=== PATIENT | male | born 1960 | race African-American/Black ===

== ENCOUNTER 2021-04-21 08:26 | Inpatient (IN) | payer SELFPAY ==
[~2021-04-21] VITALS: Ht 188 cm; Wt 104.8 kg
[2021-04-21 09:10] LABS: BASOPHILS % 0.9 % (0.0-2.0); HEMATOCRIT. 39.6 % (42.0-52.0); HEMOGLOBIN. 13.5 g/dL (14.0-18.0); LYMPHOCYTES % 25.7 % (20.0-50.0); MEAN CORPUSCULAR HEMOGLOBIN 30.6 pg (28.0-32.0); MEAN CORPUSCULAR VOLUME 90.2 fL (80.0-94.0); MEAN PLATELET VOLUME 10.6 fl (7.4-10.4); MONOCYTES % 11.4 % (2.0-8.0); PLATELET 163 x1000/uL (130-400); RED CELL DISTRIBUTION WIDTH 13.4 % (11.6-14.6)
[2021-04-21 09:16] LABS: CHLORIDE 106 mEq/L (98-107)
[2021-04-21 09:20] LABS: ETHANOL BLOOD < 10 mg/dL
[2021-04-21 12:29] LABS: CLARITY URINE CLEAR (CLEAR); COLOR URINE YELLOW (YELLOW); KETONES URINE 1+ (NEGATIVE); LEUKOCYTE ESTERASE URINE NEGATIVE (NEGATIVE); NITRITE URINE NEGATIVE (NEGATIVE); OCCULT BLOOD URINE 1+ (NEGATIVE); PROTEIN URINE TRACE (NEGATIVE); SPECIFIC GRAVITY URINE 1.031 (1.005-1.030)
[2021-04-21 12:45] LABS: *AMPHETAMINES SCREEN URINE NEGATIVE (NEGATIVE); *BARBITURATES SCREEN URINE NEGATIVE (NEGATIVE); *BENZODIAZEPINES SCREEN URINE NEGATIVE (NEGATIVE); *COCAINE SCREEN URINE NEGATIVE (NEGATIVE)
[2021-04-21 12:46] LABS: CANNABINOID URINE SCREEN NEGATIVE (NEGATIVE); METHADONE URINE SCREEN NEGATIVE (NEGATIVE); OPIATES URINE SCREEN NEGATIVE (NEGATIVE); PHENCYCLIDINE URINE SCREEN NEGATIVE (NEGATIVE)
[2021-04-21] MEDS ORDERED: NA PHOS,M-B/NA PHOS,DI-BA ENEMA 118ML PR PRN (15:30)
[2021-04-21] MEDS ORDERED: ZOLPIDEM TARTRATE 5MG TABLET PO PRN (15:30)
[2021-04-21] MEDS ORDERED: IPRATROPIUM/ALBUTEROL 0.5-3(2.5)MG/3ML NEB NEB PRN (15:30)
[2021-04-21] MEDS ORDERED: NITROGLYCERIN 0.4MG TABLET SL SL PRN (15:30)
[2021-04-21] MEDS ORDERED: KETOROLAC 15MG/ML VIAL IV PRN (15:30)
[2021-04-21] MEDS ORDERED: GUAIFENESIN 200MG/10ML SUGAR FREE UDC PO PRN (15:30)
[2021-04-21] MEDS ORDERED: DOCUSATE SODIUM 100MG CAPSULE PO PRN (15:30)
[2021-04-21] MEDS ORDERED: MAGNESIUM/ALUMINUM HYDROXIDE/SIMETHICONE 30ML UDC PO PRN (15:30)
[2021-04-21] MEDS ORDERED: ONDANSETRON HCL 4MG/2ML INJ IV PRN (15:30)
[2021-04-21] MEDS ORDERED: CLONIDINE 0.1MG TABLET PO PRN (15:30)
[2021-04-21] MEDS ORDERED: ACETAMINOPHEN 325MG TABLET PO PRN ×2 (15:30)
[2021-04-21 16:36] LABS: T4 FREE 1.16 ng/dL (0.76-1.46)
[2021-04-21 17:11] LABS: FOLIC ACID (FOLATE) SERUM 10.2 ng/mL (>5.38)
[2021-04-21] MEDS: FAMOTIDINE 20MG TABLET PO SCH (21:00)
[2021-04-21] MEDS: ASCORBIC ACID 500 MG TABLET PO SCH (21:00)
[2021-04-21] MEDS: ENOXAPARIN 40MG/0.4ML SYR SUBCUT SCH (21:36)
[2021-04-21 23:31] LABS: CREATINE KINASE 371 IU/L (39-308)
[2021-04-21 23:32] LABS: CREATINE KINASE MB FRACTION 2.7 ng/mL (0.5-3.6)
[2021-04-22 05:54] LABS: BASOPHILS % 0.8 % (0.0-2.0); EOSINOPHILS % 3.5 % (0.0-5.0); HEMATOCRIT. 45.3 % (42.0-52.0); HEMOGLOBIN. 15.2 g/dL (14.0-18.0); MEAN CORPUSCULAR HEMOGLOBIN 30.6 pg (28.0-32.0); MEAN CORPUSCULAR VOLUME 91.3 fL (80.0-94.0); MEAN PLATELET VOLUME 10.9 fl (7.4-10.4); MONOCYTES % 12.5 % (2.0-8.0); NEUTROPHILS % 51.2 % (40.0-76.0); PLATELET 165 x1000/uL (130-400); RED BLOOD CELL COUNT 4.96 mill/uL (4.7-6.1); RED CELL DISTRIBUTION WIDTH 13.5 % (11.6-14.6)
[2021-04-22 05:56] LABS: CHLORIDE 108 mEq/L (98-107)
[2021-04-22 06:05] LABS: PHOSPHORUS 3.1 mg/dL (2.5-4.9)
[2021-04-22 06:07] LABS: CREATINE KINASE 324 IU/L (39-308)
[2021-04-22] MEDS: ASPIRIN 325MG EC TABLET PO SCH (09:00)
[2021-04-22] MEDS: CHOLECALCIFEROL (D3) 1000 UNIT TABLET PO SCH (09:00)
[2021-04-22] MEDS: FAMOTIDINE 20MG TABLET PO SCH ×2 (09:00→20:25)
[2021-04-22] MEDS: ZINC SULFATE 220 MG ( 50 ) CAPSULE PO SCH (09:00)
[2021-04-22] MEDS: ASCORBIC ACID 500 MG TABLET PO SCH ×2 (09:00→20:25)
[2021-04-22 10:28] VITALS: BP 130/67
[2021-04-22] MEDS: ENOXAPARIN 40MG/0.4ML SYR SUBCUT SCH (16:00)
[2021-04-23] MEDS: ZINC SULFATE 220 MG ( 50 ) CAPSULE PO SCH (09:00)
[2021-04-23] MEDS: FAMOTIDINE 20MG TABLET PO SCH ×2 (09:00→21:00)
[2021-04-23] MEDS: ASPIRIN 325MG EC TABLET PO SCH (09:00)
[2021-04-23] MEDS: CHOLECALCIFEROL (D3) 1000 UNIT TABLET PO SCH (09:00)
[2021-04-23] MEDS: ASCORBIC ACID 500 MG TABLET PO SCH ×2 (09:00→21:00)
[2021-04-23] MEDS: ENOXAPARIN 40MG/0.4ML SYR SUBCUT SCH (16:00)
[2021-04-24] MEDS: ZINC SULFATE 220 MG ( 50 ) CAPSULE PO SCH (09:00)
[2021-04-24] MEDS: FAMOTIDINE 20MG TABLET PO SCH ×2 (09:00→21:00)
[2021-04-24] MEDS: CHOLECALCIFEROL (D3) 1000 UNIT TABLET PO SCH (09:00)
[2021-04-24] MEDS: ASCORBIC ACID 500 MG TABLET PO SCH ×2 (09:00→21:00)
[2021-04-24] MEDS: ASPIRIN 325MG EC TABLET PO SCH (09:00)
[2021-04-24 11:01] VITALS: BP 0/0
[2021-04-24] MEDS: ENOXAPARIN 40MG/0.4ML SYR SUBCUT SCH (16:00)
[2021-04-25] MEDS: ZINC SULFATE 220 MG ( 50 ) CAPSULE PO SCH (09:00)
[2021-04-25] MEDS: ASCORBIC ACID 500 MG TABLET PO SCH (09:00)
[2021-04-25] MEDS: CHOLECALCIFEROL (D3) 1000 UNIT TABLET PO SCH (09:00)
[2021-04-25] MEDS: ASPIRIN 325MG EC TABLET PO SCH (09:00)
[2021-04-25] MEDS: FAMOTIDINE 20MG TABLET PO SCH (09:00)
[2021-04-25] MEDS: ENOXAPARIN 40MG/0.4ML SYR SUBCUT SCH (16:00)
== END 2021-04-25 19:40 | disposition home or self-care (01) | DRG 52 ==
LOC: ER 08:38 → MICUSO 12:56 → EDBEDREQTM 12:59 → EDBEDREQ 12:59 → 6WST 04-22 00:03 → MICUSO 04-22 01:06 → 8WST 04-22 07:40
PROVIDERS: ADMIT Internal Medicine; ATTEND Internal Medicine
DX: G92 Toxic encephalopathy (principal); D63.8 Anemia in other chronic diseases classified elsewhere; Z20.822 Contact with and (suspected) exposure to COVID-19
CPT/HCPCS: 36415; 71045; 80053; 80061; 80305; 80320; 81003; 82550; 82553; 82607; 82728; 82746; 82962; 83036; 83540; 83550; 83615; 83735; 84100; 84145; 84439; 84443; 84484; 85025; 85379; 87426; 93005; 93970; 99285; J1650; U0003; U0005; G0480